=== PATIENT | male | born 1985 | race Caucasian/White ===

== ENCOUNTER 2020-08-03 10:09 | Day surgery (SDC) | payer OTHER ==
[~2020-08-03] VITALS: Ht 180.3 cm; Wt 71.9 kg
[2020-08-03] MEDS ORDERED: LACTATED RINGERS 1,000 ML IV SCH (10:25)
[2020-08-03] MEDS ORDERED: CHLORHEXIDINE 15 ML UDC MM ONE (10:30)
[2020-08-03] MEDS ORDERED: ACETAMINOPHEN 500 MG TABLET PO ONE (10:30)
[2020-08-03 10:42] VITALS: BP 132/80
[2020-08-03] MEDS ORDERED: ACET325C6 PO (10:42)
[2020-08-03] MEDS ORDERED: SULI150T PO (10:42)
[2020-08-03] MEDS ORDERED: PLEASE ENTER ALLERGIES MC SCH (11:00)
[2020-08-03] MEDS ORDERED: BACITRACIN 50,000 UNIT ONE (11:04)
[2020-08-03] MEDS ORDERED: BUPIVACAINE/PF 0.5% ONE (11:04)
[2020-08-03] MEDS ORDERED: MIDAZOLAM 1 MG/ML, 2ML ONE (11:24)
[2020-08-03] MEDS ORDERED: FENTANYL PF 250 MCG/5ML ONE (11:24)
[2020-08-03] MEDS ORDERED: ONDANSETRON 2MG/ML, 2ML IVPush PRN (11:30)
[2020-08-03] MEDS ORDERED: FENTANYL PF 100 MCG/2ML IV PRN (11:30)
[2020-08-03] MEDS ORDERED: MEPERIDINE/PF 25MG/0.5ML IVPush PRN (11:30)
[2020-08-03] MEDS ORDERED: PROMETHAZINE 25 MG/ML, 1ML IVPush PRN (11:30)
[2020-08-03] MEDS ORDERED: LABETALOL 5MG/ML, 20ML IV PRN (11:30)
[2020-08-03] MEDS ORDERED: EPHEDRINE 50 MG/ML, 1ML IVPush PRN (11:30)
[2020-08-03] MEDS ORDERED: hydrALAzine 20 MG/ML, 1ML IV PRN (11:30)
[2020-08-03] MEDS ORDERED: OXYcodone 5 MG/5 ML ORAL.SOL UDC PO PRN (11:30)
[2020-08-03] MEDS ORDERED: HYDROmorphone 1 MG/ML, 1ML INJ IVPush PRN (11:30)
[2020-08-03] MEDS ORDERED: KETOROLAC 30 MG/1 ML ONE (12:01)
[2020-08-03] MEDS ORDERED: LIDOCAINE-MPF 2% ,5ML ONE (12:01)
[2020-08-03] MEDS ORDERED: DEXAMETHASONE 4 MG/ML, 1ML ONE ×2 (12:01→12:03)
[2020-08-03] MEDS ORDERED: ONDANSETRON 2MG/ML, 2ML ONE ×2 (12:03→15:05)
[2020-08-03] MEDS ORDERED: PROPOFOL 10 MG/ML, 20ML ONE (12:03)
[2020-08-03] MEDS ORDERED: CEFAZOLIN 1,000 MG ONE (12:03)
[2020-08-03] MEDS ORDERED: OXYcodone 5 MG/5 ML ORAL.SOL UDC ONE (15:05)
== END 2020-08-03 16:20 | disposition home or self-care (01) ==
LOC: OUT 10:09
PROVIDERS: ATTEND Orthopaedic Surgery Hand Surgery
DX: S54.01XA Injury of ulnar nerve at forearm level, right arm, initial encounter (principal); Z20.828 Contact with and (suspected) exposure to other viral communicable diseases; W26.8XXA Contact with other sharp object(s), not elsewhere classified, initial encounter; Y93.89 Activity, other specified; Y92.148 Other place in prison as the place of occurrence of the external cause; Y99.8 Other external cause status
CPT/HCPCS: 64912; 87635; C1762; C1763; J0690; J1100; J1885; J2250; J2405; J2704; J3010; J7120